=== PATIENT | male | born 1945 | race Caucasian/White ===

== ENCOUNTER 2023-12-23 06:58 | Day surgery (SDC) | payer OTHER, SELFPAY ==
[2023-12-23] VITALS (9 sets, daily range): BP systolic 107–133; BP diastolic 49–89; BMI 44.7
[2023-12-23] MEDS: NSS 400 ML IV (07:42)
--- NOTE | 2023-12-23 08:22 | ITS.CL.CATH ---
[facility] - Catheterization
Cardiac Catheterization
Procedure Report:
CARDIAC CATHETERIZATION REPORT
Date of Procedure: 12/23/2023
Referring: Dominik Hedrick MD
Indication: Known CAD (PETRONA x 2 to LAD 2020) with exertional dyspnea and abnormal stress test
HEMODYNAMIC DATA
AO: 115/56
LV: 127/17
There is a 10 mmHg gradient across the aortic valve consistent with mild
LEFT VENTRICULOGRAPHY: Normal left ventricular wall motion with EF 67%. Also noted is mild calcification of the aortic valve
CORONARY ANGIOGRAPHY
Dominance: Right
Left Main: Normal
LAD: Moderately calcified vessel with widely patent proximal and mid LAD stents with otherwise mild luminal disease in the LAD system.
Circumflex: The circumflex has 30-40% ostial stenosis and diffuse disease of a small distal left posterolateral branch
RCA: Dominant mildly calcified vessel with mild luminal disease in the proximal and mid RCA. The acute marginal branch supplies the PDA territory. There is 30% distal RCA stenosis proximal to the first of two medium sized right posterolateral
branches
Closure Device: None-the procedure was performed via the right radial artery. The Donavon's test was normal prior to the procedure.
Radiation (mGy): 457
DAP (cm2.Gy): 39.8
Fluoroscopy time: 2.3 minutes
CONCLUSIONS
1: Probable mild aortic stenosis-mean gradient 10 mmHg by pullback
2: Normal left ventricular function with EF 67%
3. Mild calcific multivessel CAD as described
4. The patient was in atrial fibrillation with ventricular rates 80-90 on arrival to the [facility] this morning. He will resume Eliquis tonight after holding for 2 days and I told him that Dr. Hedrick would need to defer electrical cardioversion
until he has 3-4 weeks of uninterrupted anticoagulation time
Copy to: Dominik Hedrick MD, Jennifer Mortensen DO ([place])
Leonel Navarro MD, [facility], [facility]
[2023-12-23] MEDS: NSS 1000 IV (09:04)
== END 2023-12-23 11:50 | disposition home or self-care (01) ==
LOC: CATH 06:58
PROVIDERS: ATTENDING PHYSICIAN Internal Medicine Cardiovascular Disease; FAMILY PHYSICIAN Internal Medicine
DX: I25.10 Atherosclerotic heart disease of native coronary artery without angina pectoris (principal); Z95.5 Presence of coronary angioplasty implant and graft; I48.19 Other persistent atrial fibrillation; I49.3 Ventricular premature depolarization; I35.0 Nonrheumatic aortic (valve) stenosis; R94.39 Abnormal result of other cardiovascular function study; I10 Essential (primary) hypertension; E78.5 Hyperlipidemia, unspecified; R06.09 Other forms of dyspnea; E66.01 Morbid (severe) obesity due to excess calories; Z68.41 Body mass index [BMI] 40.0-44.9, adult; Z87.891 Personal history of nicotine dependence; Z79.01 Long term (current) use of anticoagulants; Z79.02 Long term (current) use of antithrombotics/antiplatelets
CPT/HCPCS: 93458; C1894; Q9967